=== PATIENT | female | born 1985 ===

== ENCOUNTER → 2020-09-29 | Outpatient (REF) | payer MEDICAID ==
[2020-09-29 18:31] LABS: CREATININE, URINE 74.5 MG/DL; MALB URINE SIEMENS 43.3 MG/L; MAU/CREAT RATIO 58.1 MCG/MG (0.0-30.0)
== END ==
LOC: M LAB REF 16:43
PROVIDERS: ATTEND Nurse Practitioner Family
DX: E11.65 Type 2 diabetes mellitus with hyperglycemia (principal)